=== PATIENT | male | born 1965 | race Caucasian/White ===

== ENCOUNTER 2020-06-04 15:56 | Emergency (ER) | payer SELFPAY ==
[~2020-06-04] VITALS: Ht 154.9 cm; Wt 88.5 kg
[2020-06-04 16:07] VITALS: BP 113/65
[2020-06-04] MEDS ORDERED: methylPREDNISolone SOD SUCC 125 MG/2 ML VL IV ONE (16:15)
== END 2020-06-04 16:44 | disposition home or self-care (01) ==
LOC: ER 15:56
DX: T78.40XA Allergy, unspecified, initial encounter (principal); X58.XXXA Exposure to other specified factors, initial encounter
CPT/HCPCS: 96374; 99283; J2930

== ENCOUNTER → 2020-06-14 | Outpatient (CLI) | payer OTHER | END | disposition home or self-care (01) | LOC: LAB 11:38 | PROVIDERS: ATTEND Nurse Practitioner Family | DX: U07.1 COVID-19 (principal) | CPT/HCPCS: C9803; U0003 ==

== ENCOUNTER → 2020-08-31 | Outpatient (CLI) | payer SELFPAY ==
[2020-08-31 13:37] LABS: Basophils # (auto) 0.1 10 ^3/uL (0-0.2); Basophils % (auto) 1.2 % (0.0-2.0); Eosinophils # (auto) 0.1 10 ^3/uL (0-0.8); Eosinophils % (auto) 1.4 % (0.0-7.0); Hematocrit 41.8 % (41.0-53.0); Hemoglobin 14.2 g/dL (13.5-17.5); Lymphocytes # (auto) 1.1 10 ^3/uL (0.4-5.4); Lymphocytes % (auto) 20.9 % (10.0-50.0); Mean Corpuscular Hemoglobin 30.5 pg (28.0-32.0); Mean Corpuscular Volume 89.7 fL (80.0-100.0); Monocytes # (auto) 0.5 10 ^3/uL (0-1.3); Monocytes % (auto) 9.9 % (0.0-12.0); Neutrophils # (auto) 3.5 10 ^3/uL (1.6-8.6); Neutrophils % (auto) 66.6 % (37.0-80.0); Nucleated Red Blood Cells % 0.1 %; Platelet Count (auto) 299 10^3/uL (140-450); Red Blood Cells 4.65 10^6/uL (4.5-5.90); White Blood Cell 5.3 10^3/uL (4.4-10.8)
[2020-08-31 14:21] LABS: % Iron Saturation 31.8 % (20-55)
[2020-09-01 00:24] LABS: Ferritin 14.5 ng/mL (10-322)
[2020-09-01 00:25] LABS: Folate (Folic Acid) 16.53 ng/mL (5.38-24)
== END | disposition home or self-care (01) ==
LOC: LAB 12:45
PROVIDERS: ATTEND Physician Assistant
DX: E55.9 Vitamin D deficiency, unspecified (principal); D53.9 Nutritional anemia, unspecified
CPT/HCPCS: 36415; 82306; 82607; 82728; 82746; 83540; 83550; 85025; 85045